=== PATIENT | male | born 1980 | race Caucasian/White ===

== ENCOUNTER 2024-03-17 19:56 | Inpatient (IN) | payer BC, SELFPAY ==
[2024-03-17] VITALS (7 sets, daily range): BP systolic 117–152; BP diastolic 68–100; BMI 33.1
[2024-03-17 15:00] LABS: % Basophils 0.3 % (0-2); % Eosinophils 1.9 % (0-6); % Immature Granulocytes 0.5 % (0-0.5); % Lymphocytes 12.2 % (20.5-51.1); % Monocytes 9.4 % (1.7-9.3); % Neutrophils 75.7 % (42.2-75.2); Absolute Basophils 0.1 10^3/uL (0-0.2); Absolute Eosinophils 0.3 10^3/uL (0-0.7); Absolute Immature Granulocytes 0.1 10^3/uL (0-0.05); Absolute Lymphocytes 1.9 10^3/uL (1.2-3.4); Absolute Monocytes 1.5 10^3/uL (0.1-0.6); Absolute Neutrophils 11.7 10^3/uL (1.4-6.5); Hemoglobin 15.9 g/dL (13.0-18.0); Mean Corp Hgb Conc. 34.6 g/dL (33.0-37.0); Mean Corpuscular Hgb 30.5 pg (27.0-31.0); Mean Corpuscular Volume 88.1 fL (80.0-94.0); Mean Platelet Volume 8.6 fL (7.4-10.4); Nucleated Red Blood Cells % 0 % (-); Platelet Count 325 10^3/uL (130-400); Red Blood Cell Count 5.22 10^6/uL (4.70-6.10); Red Cell Dist. Width 11.9 % (11.5-14.5); White Blood Cell Count 15.5 10^3/uL (4.8-10.8)
--- NOTE | 2024-03-17 15:18 | ED.GENMED ---
History of Present Illness
General
Chief Complaint: Abdominal Pain
Source: patient
Time Seen by Provider: 03/17/24 15:09
History of Present Illness
History of Present Illness:
43yoM with no significant past medical history presenting for evaluation of abdominal pain. He was at the pool yesterday when he had an abrupt onset of nausea and abdominal pain that felt like a 'poop pain.' He started to have diarrhea after this.
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 He woke up this afternoon around noon due to pain. His pain is much worse today and is coming in waves. He has never had a pain like this previously. He continues to have diarrhea
today but denies any vomiting. He reports chills throughout the day as well. He denies any dysuria, testicular pain, chest pain, shortness of breath. Only previous abdominal surgery was a hernia repair as an infant.
Phy Exam
Physical Exam
Physical Exam:
Appears uncomfortable due to pain, non-toxic
General Physical Exam
General Presentation: well appearing and moderate distress
General age: appears stated age
General Skin: warm and dry
Cardiovascular Exam
Cardiovascular Exam: regular rate/rhythm, no edema and no murmur
Pulmonary Exam
Pulmonary Exam: lungs clear, no respiratory distress, no crackles and no wheezing
Gastrointestinal Exam
Gastrointestinal Exam: soft, non distended and tender (+Tenderness to LLQ and RLQ. +Voluntary guarding with rebound tenderness. )
Palpation: left lower quadrant: Severe tenderness and right lower quadrant: Severe tenderness
Skin Exam
Skin Exam: normal color and warm/dry
Course
Orders/Labs/Results
Orders:
Orders
03/17/24 14:45
Complete Blood Count/With Diff Urgent
Comprehensive Metabolic Panel Urgent
Lipase Urgent
03/17/24 15:18
CT Abd/pelvis W Iv Cont Urgent
Comment:
Reason For Exam: Periumbilical pain, diarrhea
Stool Culture Urgent
RADHA Source: Feces/Stool
Specimen Description:
0.9% Sodium Chloride 1000 ml [Nss] 1,000 ml IV BOLUS
Ketorolac [Toradol] 15 mg IV NOW STA
Ondansetron Injectable [Zofran] 4 mg IV NOW STA
03/17/24 17:24
Piperacillin/Tazo 4.5 Gram [Zosyn] 4.5 gram in 100 ml IV NOW
03/17/24 17:34
HYDROmorphone [Dilaudid] 0.5 mg IV NOW STA
Abnormal Lab Results
03/17/24
14:45
WBC 15.5 H 10^3/uL
(4.8-10.8)
Abs Immat Gran (auto) 0.1 H 10^3/uL
(0-0.05)
Absolute Neuts (auto) 11.7 H 10^3/uL
(1.4-6.5)
Absolute Monos (auto) 1.5 H 10^3/uL
(0.1-0.6)
Neutrophils % 75.7 H %
(42.2-75.2)
Lymphocytes % 12.2 L %
(20.5-51.1)
Monocytes % 9.4 H %
(1.7-9.3)
Glucose 115 H mg/dl
(70-99)
03/17/24 14:45
03/17/24 14:45
Vital Signs
Initial and Last Documented VS:
Initial Vital Signs
Temp Pulse Resp BP Pulse Ox
99.6 F 110 16 149/100 98
03/17/24 14:36 03/17/24 14:36 03/17/24 14:36 03/17/24 14:36 03/17/24 14:36
Last Documented Vital Signs
Temp Pulse Resp BP Pulse Ox
99.6 F 99 16 142/81 98
03/17/24 14:36 03/17/24 16:56 03/17/24 16:56 03/17/24 16:56 03/17/24 16:56
MDM/Problems Addressed
Differential Diagnosis Includes:
43yoM here with abdominal pain and diarrhea x 1 day. Pain is worse in periumbilical region. +Chills. No urinary symptoms or testicular pain. He is afebrile and hemodynamically stable. He appears uncomfortable during exam. There is voluntary guarding
and rebound tenderness on exam. Differential diagnosis includes but is not limited to: diverticulitis, appendicitis, colitis, kidney stone, perforated viscous, gastroenteritis
Initial ED plan: Check abdominal labs, stool culture, and CT abdomen. IV Zofran, Toradol, and fluid bolus for symptoms.
*Critical Care Note
Total Time (30-74mins, 75-104mins- exclusive of procedures): Not Applicable
Update Note
Update Note:
Labs reveal a leukocytosis with a WBC of 15.5. CT shows acute diverticulitis with microperforation. IV Zosyn ordered and he was admitted for further management.
ED Attending Note
-
Portions of this chart may have been created with voice recognition software.� Occasional wrong word or��sound alike� substitutions may have occurred due to the inherent limitations of voice recognition software.
Discharge Plan
Departure
Patient Disposition: Admit
Date of Disposition: 03/17/24
Time of Disposition: 17:37
Presentation/result/management discussed w/ accepting MD/DO: Hospitalist
Discharge Problem:
Acute diverticulitis
Prescriptions:
No Action
No Current Medications
0
Referrals:
NONE,* [Family Provider] -
Interventions
Interventions:
*Risk Screen - Suicide Last Done: 03/17/24 14:36
*General Assessment Last Done: 03/17/24 14:36
*Neglect/Abuse Screening Last Done: 03/17/24 14:36
ED- Fall Risk Assessment Last Done: 03/17/24 15:09
*ED COVID-19 Vaccine History Last Done: 03/17/24 15:09
UZ-Vlcica-Dbxxdqhrbc Assessment Last Done: 03/17/24 15:09
Discharge Date and Time
Print Language: TAMAZIGHT
[2024-03-17 15:19] LABS: ALT (SGPT) 34 U/L (0-50); AST (SGOT) 26 U/L (17-59); Albumin 4.8 g/dl (3.5-5.0); Alkaline Phosphatase 68 U/L (38-126); Blood Urea Nitrogen 20 mg/dl (9-20); Calcium 10.2 mg/dl (8.4-10.2); Carbon Dioxide 28 mmol/L (22-30); Chloride 103 mmol/L (98-107); Glucose 115 mg/dl (70-99); Lipase 59 U/L (23-300); Potassium 4.4 mmol/L (3.5-5.1); Sodium 139 mmol/L (135-145); Total Bilirubin 0.8 mg/dl (0.2-1.3); Total Protein 7.5 g/dl (6.3-8.2); eGFR > 60.00
[2024-03-17] MEDS: ZOFRAN 4 MG IV (15:23)
[2024-03-17] MEDS: TORADOL 15 MG IV (15:23)
[2024-03-17] MEDS: NSS 1000 IV ×2 (15:23→21:30)
[2024-03-17] MEDS: ZOSYN 100 IV (17:30)
[2024-03-17] MEDS: DILAUDID 0.5 MG IV ×2 (17:49→22:33)
--- NOTE | 2024-03-17 18:11 | HPS.HSE ---
Addendum entered and electronically signed by SUNDAY Da Silva 03/17/24 18:53:
will place on tele given sepsis
Original Note:
Family Physician
-
Family Physician: * NONE
Chief Complaint
-
Abdominal pain, nausea, diarrhea
History of Present Illness
43-year-old male complaining of abdominal pain with nausea to the right of his umbilicus associated with watery black/green diarrhea. 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
black-green in color no mucus or blood. He is estranged from his family but has not heard of any history of diverticulitis diverticulosis or colitis. He has never had a colonoscopy himself. He denies eating any recent lunch meat that he got from
[employer] as there is a current Listeria outbreak for the [employer] that he purchased. He is tender right sided only. He woke up around noon still with abdominal pain coming in waves like forms. He reports chills throughout the day. He denies any
hematuria, dysuria, testicular pain or swelling, fever, chest pain, shortness of breath, cough, vomiting.
He has past surgical history of hernia repair as , dips nicotine, occasional alcohol.
Medical History
Past Medical History
Past Medical History: Reports None
Additional Past Medical History:
HTN
Dips nicotine daily
Occasional alcohol
Past Surgical History: Reports Other
Additional Past Surgical History:
Inguinal hernia repair as child
Social History
Tobacco: Other (Dips nicotine and pouches daily)
Alcohol: Occasional (2 beers 2-3 times a week when off work)
Drug: None
Personal:
Living: With Family (Twin children)
Employment: Employed (protection officer)
Family History
Family History: Other (Patient is estranged from his family although denies hearing any reports of colon issues)
Allergies / Home Medications
Allergies reflects when Allergies were last updated in [facility].
Home Medications with original date entered in [facility]
Allergy/Medication List:
Allergies
Allergy/AdvReac Type Severity Reaction Status Date / Time
No Known Allergies Allergy Verified 03/17/24 14:36
Home Medications
No Meds [No Current Medications] 03/17/24
Review of Systems
-
History Source: Patient
A 12 point ROS was completed and negative except as noted: Yes
Constitutional: Reports Chills; Denies Fever or Fatigue
EENT: Denies Sore Throat or Runny Nose
Respiratory: Denies Cough or Trouble Breathing
Cardiac: Denies Chest Pain or Diaphoresis
Abdomen/GI: Reports Abdominal Pain (To right of umbilicus), Nausea, Vomiting (X 1 yesterday) and Diarrhea (Watery black to green)
: Denies Dysuria, Frequency, Flank Pain, Incontinence or Difficulty Voiding
Musculoskeletal: Denies Joint Pain or Edema
Skin: Denies Itching or Rash
Neurological: Denies Dizzy, Headache, Weakness or Numbness
Endocrine: Reports No Symptoms and Polyuria
Hematologic/Lymphatic: Reports No Symptoms
Psych: Reports Calm
Physical Exam
Vital Signs
Vital Signs
Temp Pulse Resp BP Pulse Ox
99.6 F 99 16 142/81 98
03/17/24 14:36 03/17/24 16:56 03/17/24 18:10 03/17/24 16:56 03/17/24 16:56
Physical Exam
General: Comfortable, Conversant, Pain and Chills; No Fever
HEENT: NormoCephalic, Anicteric, Moist mucous membranes, PERRLA, [place] Conjunctivae and No Ptosis
Respiratory: Clear; No Wheezes, Rales or Rhonchi
Cardiac: S1/S2 and Regular Rhythm (HR 95); No Murmur, Rub or Gallop
Breast: Deferred by me
GI: Soft, Normal Bowel Sounds, Tender (To right of umbilicus hard with palpation) and Distended
Rectal: Deferred by Provider
Genito-urinary: Deferred by me
Musculoskeletal: No Clubbing, No Cyanosis and No Edema
Skin: Warm and Dry; No Rash
Neuro: AO x 3, No Motor Deficits and Cranial Nerves Intact; No Slurred Speech, Facial Droop, Tremors or Sedated
Laboratory Results
-
03/17/24 14:45
03/17/24 14:45
Laboratory Results
Total Bilirubin 0.8 mg/dl (0.2-1.3) 03/17/24 14:45
AST 26 U/L (17-59) 03/17/24 14:45
ALT 34 U/L (0-50) 03/17/24 14:45
Alkaline Phosphatase 68 U/L (38-126) 03/17/24 14:45
Lipase 59 U/L (23-300) 03/17/24 14:45
Data Reviewed
-
CT Scan: Report Reviewed by me
Lab Data: Labs Reviewed by me
Impression/Plan
-
Impression/plan:
Admit to MedSurg
#Sepsis 2/2 acute sigmoid diverticulitis with microperforation
WBC 15.5 with left shift, 99.6 F, HR 95, 120/84
-Blood culture x 1, check lactic acid
-Consult colorectal surgery
-IV NSS
-N.p.o.
-IV PPI
-IV Zosyn
-Pain control, Zofran as needed nausea
-Follow CBC with CMP
CT with IV contrast: Moderate acute diverticulitis of the mid sigmoid colon with probable focal microperforation. No evidence of abscess formation.
Mild hepatic fatty infiltration
DVT prophylaxis
Subcu Lovenox
Full code
--- NOTE | 2024-03-17 18:44 | W.PN.UPDATE ---
Update Note
Progress Note Update
I saw and examined the patient.
The METALS ANALYST or PA's note was reviewed and I agree with the note.
Comment: This dictation is in addition to METALS ANALYST's H&P
43-year-old male with history of inguinal hernia repair came to the hospital with abdominal pain, nausea and vomiting. CT scan consistent with complicated diverticulitis with microperforation. Check lactic acid. Consult colorectal surgery. NPO.
Continue with antibiotics. IVF. If symptoms get worse lactic elevated then notify colorectal surgery. Pain control. bcx
General: Appears uncomfortable due to pain, non-toxic
HEENT: anicteric,pink conjuctivae
CVS: RRR, normal S1 and s2
Resp: CTA,no wheezing
GI: tender, not distended
: no francois
Ext: no edema
Neuro: AAOX3
Psych: calm
[2024-03-17] MEDS: PROTONIX IV 40 MG IV (19:15)
[2024-03-17 19:51] LABS: Lactic Acid 1.4 mmol/L (0.7-2.0)
[2024-03-17] MEDS: TYLENOL 650 MG PO (21:30)
--- NOTE | 2024-03-17 22:30 | PTCARENOTE ---
A 43-year-old male pt arrived from the ED at 21:15, Pt complaining of abdominal pain with nausea to the right of his umbilicus associated with watery black/green diarrhea. 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
from 12- 30 this morning of watery black-green in color no mucus or blood. He reports chills throughout the day, upon arrival to the unit his initial temp was 101.3, pt given Tylenol an hour later temp 99.8. He has past surgical history of hernia
repair as , dips nicotine, occasional alcohol. Dx Sigmoid Diverticulitis with Mircro Perf, pt NPO. Stool sample pending, hat in bathroom, pt aware to call when he has a BM. Pt AOx3. bed in a low postition, call light in reach.
[2024-03-17] MEDS: ZOSYN 50 IV (23:42)
[2024-03-18 03:31] VITALS: BP 113/68
[2024-03-18] MEDS: ZOSYN 50 IV ×4 (05:22→23:50)
[2024-03-18 07:40] VITALS: BP 122/70
[2024-03-18 07:53] LABS: ALT (SGPT) 22 U/L (0-50); AST (SGOT) 19 U/L (17-59); Albumin 3.6 g/dl (3.5-5.0); Alkaline Phosphatase 60 U/L (38-126); Blood Urea Nitrogen 17 mg/dl (9-20); Calcium 8.9 mg/dl (8.4-10.2); Carbon Dioxide 25 mmol/L (22-30); Chloride 104 mmol/L (98-107); Estimated Creatinine Clearance > 125 ml/min; Glucose 102 mg/dl (70-99); Potassium 3.7 mmol/L (3.5-5.1); Sodium 134 mmol/L (135-145); Total Bilirubin 1.4 mg/dl (0.2-1.3); eGFR > 60.00
[2024-03-18 09:30] LABS: % Basophils 0.3 % (0-2); % Eosinophils 0.6 % (0-6); % Immature Granulocytes 0.3 % (0-0.5); % Lymphocytes 11.4 % (20.5-51.1); % Monocytes 10.2 % (1.7-9.3); % Neutrophils 77.2 % (42.2-75.2); Absolute Eosinophils 0.1 10^3/uL (0-0.7); Absolute Immature Granulocytes 0.1 10^3/uL (0-0.05); Absolute Lymphocytes 1.8 10^3/uL (1.2-3.4); Absolute Monocytes 1.6 10^3/uL (0.1-0.6); Absolute Neutrophils 12.3 10^3/uL (1.4-6.5); Hematocrit 35.7 % (39.0-52.0); Hemoglobin 12.5 g/dL (13.0-18.0); Mean Corpuscular Hgb 30.4 pg (27.0-31.0); Mean Corpuscular Volume 86.9 fL (80.0-94.0); Mean Platelet Volume 8.8 fL (7.4-10.4); Nucleated Red Blood Cells % 0 % (-); Platelet Count 257 10^3/uL (130-400); Red Blood Cell Count 4.11 10^6/uL (4.70-6.10); Red Cell Dist. Width 11.9 % (11.5-14.5); White Blood Cell Count 15.9 10^3/uL (4.8-10.8)
[2024-03-18] MEDS: NSS 1000 IV ×2 (09:30→17:56)
[2024-03-18] MEDS: TYLENOL 650 MG PO (09:39)
[2024-03-18] MEDS: NSS (PRESERVATIVE FREE) 10 ML IV (09:40)
[2024-03-18] MEDS: PROTONIX IV 40 MG IV (09:40)
--- NOTE | 2024-03-18 10:33 | PTOTSP ---
Patient observed ambulating independently in the hallway. Patient agreeable to PT signing off at this time.
--- NOTE | 2024-03-18 10:37 | W.PN.HOSP.TC ---
Today's Communication/Plan
-
monitor vitals
see plan
surgery to see today
NPO
IVF
pain control
follow fever curve
cw abx
Assessment / Plan
Assessment / Plan
General: Appears uncomfortable due to pain, non-toxic
HEENT: anicteric,pink conjuctivae
CVS: RRR, normal S1 and s2
Resp: CTA,no wheezing
GI: tender, not distended
: no francois
Ext: no edema
Neuro: AAOX3
Psych: calm
Sepsis 2/2 acute sigmoid diverticulitis with microperforation
normal lactate
bcx pending
-Consulted colorectal surgery
-IV NSS
-N.p.o.
-IV PPI
-IV Zosyn
-Pain control, Zofran as needed nausea
CT with IV contrast: Moderate acute diverticulitis of the mid sigmoid colon with probable focal microperforation. No evidence of abscess formation.
Mild hepatic fatty infiltration
DVT prophylaxis
Subcu Lovenox
Full code
Anticipated Discharge: Today
Subjective/Interval History
-
Date of Service: March 18, 2024
fever overnight
Objective Data
-
Labs:
Laboratory Results
03/18/24
07:05
WBC 15.9 H
Hgb 12.5 L D
Hct 35.7 L
Plt Count 257 D
Sodium 134 L
Potassium 3.7
Chloride 104
Carbon Dioxide 25
BUN 17
Creatinine 0.9
Glucose 102 H
Calcium 8.9
Total Bilirubin 1.4 H
AST 19
ALT 22
Alkaline Phosphatase 60
Vital Signs:
Vital Signs
Temp Pulse Resp BP Pulse Ox
100.1 F 91 16 122/70 97
03/18/24 07:40 03/18/24 07:40 03/18/24 07:40 03/18/24 07:40 03/18/24 09:50
I&O
03/17/24 03/18/24 03/19/24
06:59 06:59 06:59
Intake Total 1050 / 1050
Balance 1050 / 1050
[2024-03-18 11:10] VITALS: BP 129/76
--- NOTE | 2024-03-18 11:26 | CON.GS ---
Addendum entered and electronically signed by Kalyan Hair MD 03/18/24 14:47:
Patient seen and examined in consultation with surgical nurse practitioner this a.m. Agree with documented consultation note. This is a delayed consult entry/update.
HPI: 43-year-old male with no significant past abdominal surgical history or prior GI history who presented with the acute onset of abdominal pain noted to when swimming in the pool with his children on . Then developed diarrhea and episode
of vomiting. He went to work overnight into Wednesday with worsening abdominal pain yesterday after returning home prompting emergency department evaluation. Pain worse with movement. Predominantly located in the lower central abdomen. Now
alleviated a bit after treatment overnight. No further nausea or vomiting. No flatus and no bowel movement after diarrhea ceased the other day.
No family history of colon cancers or GI conditions. He has never had a colonoscopy.
Tmax 101.3 afebrile vital signs stable
NAD AAOx3 appears comfortable
Abdomen: Softly distended, tenderness palpation suprapubic with voluntary guarding on deep palpation and rebound localized to this area. Rest of abdominal examination with some tenderness in the bilateral lower quadrants but no rebound or guarding
in these regions. No percussion tenderness.
CT imaging consistent with probable sigmoid diverticulitis and contained mesenteric perforation without abscess or fluid collection.
Assessment/plan: 43-year-old male with sigmoid diverticulitis complicated by probable contained mesenteric perforation without abscess or fluid collection. Without peritonitis.
Reviewed with patient pathophysiology of diverticular disease.
We discussed medical management given clinical stability and improvement with initial bowel rest, IV fluid hydration and antibiotics.
Continue close monitoring
Discussed risks of potential development of abscess
Follow-up CBC tomorrow
Continue Zosyn
Continue n.p.o. except ice chips/sips for comfort
IV fluids
Analgesics/antiemetics as needed
Original Note:
Consultation
-
Date/Time Consultation Requested: 03/17/24 2357
Requesting Provider: Miguel
Reason for Consultation: Sigmoid diverticulitis with perf
Medical History
-
Chief Complaint: abdominal pain
History of Present Illness:
Mr. Duncan is a 43 yo male with h/o inguinal hernia repair as a child who presents with abdominal day which began about 2 days ago while he was in the pool with his children. He notes that he had a wave of nausea and went into the house and vomited.
He then developed watery diarrhea and felt a little better after passing some stools. He works third shift and completed his shift as usual but did have multiple episodes of diarrhea during his shift. He went home and went to bed but was awakened
from sleep around noon with increasing abdominal pain and chills. He presented through the ED for evaluation given the severity of his pain. He denies active nausea and notes the pain is a little better. He is markedly tender to the suprapubically
to the left side of the abdomen with radiating tenderness to the lower abdomen. He was febrile overnight to 101.3 but currently afebrile. He denies family history of colon problems and has not yet had a colonoscopy.
Past Medical History
Past Medical History: HTN
Past Surgical History: Hernia Repair (inguinal as a child)
Social History
Tobacco: Other (dip)
Alcohol: Occasional
Personal:
Living: With Family
Employment: Employed (admitting officer)
Family History
Family History: Reviewed & Not Pertinent
Allergies / Home Medications
Allergy/AdvReac Type Severity Reaction Status Date / Time
No Known Allergies Allergy Verified 03/17/24 14:36
�Medication �Instructions �Recorded �Confirmed �Type
No Meds [No Current Medications] 03/17/24 03/17/24 History
Review of Systems
-
History Source: Patient
All other systems: Negative unless noted
A 10 point review of systems was completed, and was negative except as per HPI.
Physical Exam
Vital Signs
Temp Pulse Resp BP Pulse Ox
99.0 F 84 16 129/76 96
03/18/24 11:10 03/18/24 11:10 03/18/24 11:10 03/18/24 11:10 03/18/24 11:10
03/17/24 03/18/24 03/19/24
06:59 06:59 06:59
Actual Weight 113.942 kg
Body Mass Index (BMI) 33.1
Lab Results
03/18/24 07:05
03/18/24 07:05
WBC 15.9 10^3/uL (4.8-10.8) H 03/18/24 07:05
Hgb 12.5 g/dL (13.0-18.0) L D 03/18/24 07:05
Hct 35.7 % (39.0-52.0) L 03/18/24 07:05
Plt Count 257 10^3/uL (130-400) D 03/18/24 07:05
Abs Immat Gran (auto) 0.1 10^3/uL (0-0.05) H 03/18/24 07:05
Neutrophils % 77.2 % (42.2-75.2) H 03/18/24 07:05
Physical Exam
General: Well Developed and Well Nourished
HEENT: Moist Mucous Membranes
Respiratory: Non Labored Respirations
GI: Soft, Tender (severe to left side of suprapubic area, BLLQ also mildly tender) and Distended (mild)
Skin: Warm and Dry
Neuro: Awake, Alert and AO x 3
Psych: Calm
Data Reviewed
-
CT Scan: Image Personally Visualized and interpreted, Report Reviewed by me, Discussed with Physician, Discussed with Nurse and Discussed with Patient
Labs: Labs Reviewed by me, Discussed with Physician and Discussed with Patient
Old Records: Reviewed
Assessment / Plan
-
43 yo male with around 48 hours of lower abdominal pain with n/v/d at home. CT imaging reviewed with findings consistent with sigmoid diverticulitis with small contained perforation without abscess. This is his first episode of diverticulitis.
Febrile overnight to 101.7. Initially with tachycardia which has resolved. Leukocytosis present, not yet trending down.
No plans for emergent surgery at this time. Will follow with bowel rest on antibiotics with supportive measures for improvement.
--NPO with sips of clears
--IVF while NPO
--Analgesics/antiemetics as needed
--Medical management as per primary team
--- NOTE | 2024-03-18 11:30 | CM ---
Reviewed the chart notes and spoke with the patient at the bedside. The patient resides with his spouse in a two story home with one step to enter. The patient reports no DME/VN/SNF in the past. The patient confirmed his pharmacy of choice is the
[address] CM continues to be available to patient/family and is monitoring medical plan for needs at discharge.
Plan: Discharge to home when medically stable. No anticipated needs. Patient's spouse will provide transportation home.
[2024-03-18] MEDS: DILAUDID 0.25 MG IV (14:18)
[2024-03-18 15:55] VITALS: BP 128/76
[2024-03-18 19:28] VITALS: BP 125/80
[2024-03-18] MEDS: NICODERM TRANSDERMAL 7 MG TRANSDERM (19:54)
[2024-03-18 23:29] VITALS: BP 143/85
[2024-03-19 03:31] VITALS: BP 143/83
[2024-03-19] MEDS: NSS 1000 IV ×2 (04:35→15:12)
[2024-03-19] MEDS: ZOSYN 50 IV ×4 (06:12→23:53)
[2024-03-19 07:30] VITALS: BP 138/89
--- NOTE | 2024-03-19 08:47 | W.PN.GS2 ---
Addendum entered and electronically signed by Kalyan Burgess MD 03/19/24 09:02:
Seen and examined with REPAIR MANAGER. Agree with documented progress note
Patient sleeping but awoke easily. Patient states that he had difficulty sleeping till about 4 AM
Abdominal pain much improved
No nausea
Passing flatus and loose stools
AFVSS
ABD: Soft, less distended, still with tenderness in the suprapubic region, and a bit to the right and left lower quadrant but no voluntary guarding or rebound
Assessment/plan: 43-year-old male with sigmoid diverticulitis complicated by contained presumed mesenteric perforation without abscess or fluid collection, without generalized peritonitis
Clinically responding well to medical management
Okay to initiate liquid diet today starting with clears and advancing to fulls in the evening
Continue Zosyn
Possible further dietary advancement and discharge tomorrow if continued clinical improvement
Would subsequently need routine outpatient follow-up and colonoscopy in approximately 3 months
Original Note:
Today's Communication / Plan
-
Clear liquids and advance to fulls if tolerating
Assessment / Plan
-
43-year-old male with sigmoid diverticulitis complicated by probable contained mesenteric perforation without abscess or fluid collection. Without peritonitis.
AFVSS
Labs for today pending
Afebrile for past 24h
Plan:
Trend CBCs
Continue IV Zosyn
Trial of clear liquids and advance to FLD later today if no increase in pain
IV fluids
Analgesics/antiemetics as needed
Planning continued medical management given clinical stability and improvement with initial bowel rest, IV fluid hydration and antibiotics. Follow closely for potential development of abscess
Subjective Data
-
Date of Service: March 19, 2024
Patient seen and examined at bedside with Dr. burgess. Denies n/v. Passed some loose stools overnight and flatus. Pain improving. Afebrile. Did not sleep well last night, was unable to fall asleep until around 4am
Objective Data
-
Intake and Output
03/18/24 03/19/24 03/20/24
06:59 06:59 06:59
Intake Total 1050 / 1050 1800 / 1800
Output Total 350 / 350
Balance 1050 / 1050 1450 / 1450
Intake:
IV fluids (Total) 950 / 950 1800 / 1800
IV piggybacks 100 / 100
Output:
Urine, Voided 350 / 350
Other:
Number of approximated MODERATE 1 3
amounts of urine
Number of approximated LARGE 1
amounts of urine
Number of unmeasured liquid
stools
Rectum 1
Vital Signs
Temp Pulse Resp BP Pulse Ox
98.1 F 85 14 138/89 98
03/19/24 07:30 03/19/24 07:30 03/19/24 07:30 03/19/24 07:30 03/19/24 07:30
Calcium 8.9 mg/dl (8.4-10.2) 03/18/24 07:05
Total Bilirubin 1.4 mg/dl (0.2-1.3) H 03/18/24 07:05
AST 19 U/L (17-59) 03/18/24 07:05
ALT 22 U/L (0-50) 03/18/24 07:05
Alkaline Phosphatase 60 U/L (38-126) 03/18/24 07:05
Total Protein 6.0 g/dl (6.3-8.2) L 03/18/24 07:05
Albumin 3.6 g/dl (3.5-5.0) 03/18/24 07:05
Physical Exam
-
NAD
ABD soft, ND, tenderness to left lateral suprapubic area
[2024-03-19] MEDS: NSS (PRESERVATIVE FREE) 10 ML IV (09:17)
[2024-03-19] MEDS: PROTONIX IV 40 MG IV (09:18)
[2024-03-19 09:43] LABS: ALT (SGPT) 21 U/L (0-50); AST (SGOT) 29 U/L (17-59); Albumin 4.1 g/dl (3.5-5.0); Alkaline Phosphatase 73 U/L (38-126); Blood Urea Nitrogen 11 mg/dl (9-20); Carbon Dioxide 19 mmol/L (22-30); Chloride 106 mmol/L (98-107); Estimated Creatinine Clearance > 125 ml/min; Glucose 71 mg/dl (70-99); Potassium 3.8 mmol/L (3.5-5.1); Sodium 137 mmol/L (135-145); Total Bilirubin 1.1 mg/dl (0.2-1.3); Total Protein 6.7 g/dl (6.3-8.2); eGFR > 60.00
[2024-03-19 10:43] LABS: % Basophils 0.5 % (0-2); % Eosinophils 2.4 % (0-6); % Immature Granulocytes 0.4 % (0-0.5); % Lymphocytes 18.7 % (20.5-51.1); Absolute Basophils 0.1 10^3/uL (0-0.2); Absolute Eosinophils 0.3 10^3/uL (0-0.7); Absolute Monocytes 0.9 10^3/uL (0.1-0.6); Absolute Neutrophils 7.5 10^3/uL (1.4-6.5); Hematocrit 38.7 % (39.0-52.0); Mean Corp Hgb Conc. 36.2 g/dL (33.0-37.0); Mean Corpuscular Hgb 30.9 pg (27.0-31.0); Mean Corpuscular Volume 85.4 fL (80.0-94.0); Nucleated Red Blood Cells % 0 % (-); Red Blood Cell Count 4.53 10^6/uL (4.70-6.10); Red Cell Dist. Width 11.4 % (11.5-14.5); White Blood Cell Count 10.7 10^3/uL (4.8-10.8)
--- NOTE | 2024-03-19 10:45 | W.PN.HOSP.TC ---
Today's Communication/Plan
-
monitor vitals
see plan
cw abx
trial of clears
Assessment / Plan
Assessment / Plan
General: Appears uncomfortable due to pain, non-toxic
HEENT: anicteric,pink conjuctivae
CVS: RRR, normal S1 and s2
Resp: CTA,no wheezing
GI: tender, not distended
: no francois
Ext: no edema
Neuro: AAOX3
Psych: calm
Sepsis 2/2 acute sigmoid diverticulitis with microperforation
normal lactate
bcx NGTD
colorectal surgery following
Trial of clears
-IV PPI
-IV Zosyn
-Pain control, Zofran as needed nausea
CT with IV contrast: Moderate acute diverticulitis of the mid sigmoid colon with probable focal microperforation. No evidence of abscess formation.
Mild hepatic fatty infiltration
DVT prophylaxis
Subcu Lovenox
Full code
Anticipated Discharge: Within 24 hours
Subjective/Interval History
-
Date of Service: March 19, 2024
Feeling little better
Objective Data
-
Labs:
Laboratory Results
03/19/24
07:22
WBC 10.7
Hgb 14.0
Hct 38.7 L
Plt Count Pending
Sodium 137
Potassium 3.8
Chloride 106
Carbon Dioxide 19 L
BUN 11
Creatinine 0.7
Glucose 71
Calcium 9.0
Total Bilirubin 1.1
AST 29
ALT 21
Alkaline Phosphatase 73
Vital Signs:
Vital Signs
Temp Pulse Resp BP Pulse Ox
98.1 F 85 14 138/89 98
03/19/24 07:30 03/19/24 07:30 03/19/24 07:30 03/19/24 07:30 03/19/24 07:30
I&O
03/18/24 03/19/24 03/20/24
06:59 06:59 06:59
Intake Total 1050 / 1050 1800 / 1800
Output Total 350 / 350
Balance 1050 / 1050 1450 / 1450
[2024-03-19 11:54] LABS: Platelet Count 270 10^3/uL (130-400)
[2024-03-19 11:55] LABS: Mean Platelet Volume 9.3 fL (7.4-10.4)
[2024-03-19 15:00] VITALS: BP 134/91
[2024-03-19 23:00] VITALS: BP 151/100
[2024-03-20] MEDS: NSS 1000 IV (02:55)
[2024-03-20] MEDS: ZOSYN 50 IV (05:08)
[2024-03-20 07:14] LABS: % Basophils 0.4 % (0-2); % Eosinophils 4.9 % (0-6); % Immature Granulocytes 0.5 % (0-0.5); % Lymphocytes 19.2 % (20.5-51.1); % Monocytes 9.6 % (1.7-9.3); % Neutrophils 65.4 % (42.2-75.2); Absolute Eosinophils 0.5 10^3/uL (0-0.7); Absolute Immature Granulocytes 0.1 10^3/uL (0-0.05); Absolute Lymphocytes 1.8 10^3/uL (1.2-3.4); Absolute Monocytes 0.9 10^3/uL (0.1-0.6); Absolute Neutrophils 6.1 10^3/uL (1.4-6.5); Hematocrit 36.8 % (39.0-52.0); Hemoglobin 13.1 g/dL (13.0-18.0); Mean Corp Hgb Conc. 35.6 g/dL (33.0-37.0); Mean Corpuscular Hgb 30.8 pg (27.0-31.0); Mean Corpuscular Volume 86.6 fL (80.0-94.0); Mean Platelet Volume 9.1 fL (7.4-10.4); Nucleated Red Blood Cells % 0 % (-); Platelet Count 279 10^3/uL (130-400); Red Blood Cell Count 4.25 10^6/uL (4.70-6.10); Red Cell Dist. Width 11.4 % (11.5-14.5); White Blood Cell Count 9.3 10^3/uL (4.8-10.8)
[2024-03-20 07:33] LABS: ALT (SGPT) 18 U/L (0-50); AST (SGOT) 21 U/L (17-59); Albumin 3.6 g/dl (3.5-5.0); Alkaline Phosphatase 55 U/L (38-126); Blood Urea Nitrogen 10 mg/dl (9-20); Carbon Dioxide 25 mmol/L (22-30); Chloride 106 mmol/L (98-107); Estimated Creatinine Clearance > 125 ml/min; Glucose 88 mg/dl (70-99); Potassium 4.2 mmol/L (3.5-5.1); Sodium 138 mmol/L (135-145); Total Bilirubin 0.6 mg/dl (0.2-1.3); eGFR > 60.00
[2024-03-20 07:50] VITALS: BP 151/87
--- NOTE | 2024-03-20 07:56 | W.PN.HOSP.TC ---
Today's Communication/Plan
-
advance to LRD
Assessment / Plan
Assessment / Plan
General: Appears uncomfortable due to pain, non-toxic
HEENT: anicteric,pink conjuctivae
CVS: RRR, normal S1 and s2
Resp: CTA,no wheezing
GI: tender, not distended
: no francois
Ext: no edema
Neuro: AAOX3
Psych: calm
CT A/P 03/17/24
IMPRESSION: Moderate acute diverticulitis of the mid sigmoid colon with probable focal microperforation. No evidence of abscess formation.
Mild hepatic fatty infiltration
Critical value: Perforation
Sepsis 2/2 acute sigmoid diverticulitis with microperforation
-lactate nl
-appreciate CRS
-CLD advanced to fulls on 03/19; will now advanced to LRD this AM and possible DC home later today
-IV PPI
-IV Zosyn
-Pain control, Zofran as needed nausea
-needS routine outpatient follow-up and colonoscopy in approximately 3 months
-will complete 14 day course on DC with Augmentin TID (11 more days on DC)
DVT prophylaxis
Subcu Lovenox
Full code
Anticipated Discharge: Within 24 hours
Subjective/Interval History
-
Date of Service: March 20, 2024
feeling well
no pain
tolerated fulls
wants to eat real food and go home later
no fevers/chills
no vomiting/nausea
Objective Data
-
Labs:
Laboratory Results
03/20/24
06:37
WBC 9.3
Hgb 13.1
Hct 36.8 L
Plt Count 279
Sodium 138
Potassium 4.2
Chloride 106
Carbon Dioxide 25
BUN 10
Creatinine 0.9
Glucose 88
Calcium 9.0
Total Bilirubin 0.6
AST 21
ALT 18
Alkaline Phosphatase 55
Vital Signs:
Vital Signs
Temp Pulse Resp BP Pulse Ox
98.8 F 68 18 151/100 99
03/19/24 23:00 03/19/24 23:00 03/19/24 23:00 03/19/24 23:00 03/19/24 23:00
I&O
03/19/24 03/20/24 03/21/24
06:59 06:59 06:59
Intake Total 1800 / 1800 3320 / 3320
Output Total 350 / 350
Balance 1450 / 1450 3320 / 3320
Review of Systems
-
History Source: Patient
All other systems: Reviewed and negative
Physical Exam
-
General: No Apparent Distress
HEENT: PERRLA
Respiratory: Clear to Auscultation; Negative Wheezes
Cardiac: Regular Rhythm and S1/S2
GI: Soft and Nontender
Musculoskeletal: No Edema
Skin: Warm and Dry; Negative Rash
Neuro: AO x 3
Psych: Calm
Data Reviewed
-
Diagnostic Radiology: Report Reviewed by me
Labs: Labs Reviewed by me
[2024-03-20] MEDS: PROTONIX IV 40 MG IV (08:11)
[2024-03-20] MEDS: NSS (PRESERVATIVE FREE) 10 ML IV (08:11)
--- NOTE | 2024-03-20 08:31 | W.PN.GS2 ---
Addendum entered and electronically signed by Khanh Rosario MD 03/20/24 10:42:
I saw and examined the patient independently.
The Biometrics Instructor's note was reviewed and I agree with the note, assessment and plan except where noted below.
Comment: This is a 43-year-old male who presents with his first episode of sigmoid diverticulitis with a contained mesenteric perforation without abscess or peritonitis. Leukocytosis resolved. Clinically improved.
Advance to low residue diet
10 more days of antibiotics, okay to transition to p.o. Augmentin.
Dispo planning, patient to follow-up with Dr. Hair in 2 to 3 weeks, he will need an outpatient colonoscopy in the next 2 to 3 months.
All questions answered, patient agreeable to plan of care above.
Original Note:
Today's Communication / Plan
-
Advance diet
Dispo planning
Assessment / Plan
-
43-year-old male with sigmoid diverticulitis complicated by probable contained mesenteric perforation without abscess or fluid collection. Without peritonitis.
AFVSS
Leukocytosis resolved
Plan:
Trend CBCs
Continue IV Zosyn, ok to transition to PO Augmentin upon discharge. Would recommend a total of 14 day course
Advance to LRD
D/C IVF
Analgesics/antiemetics as needed
Clear for D/C later today from surgical standpoint if tolerating diet
Subjective Data
-
Date of Service: March 20, 2024
Patient seen and examined at bedside with Dr. Rosario. Pain is nearly resolved and he feels overall much improved. Denies n/v. Tolerating dietary advancements without worsening pain. Passing flatus and some loose stools.
Objective Data
-
Intake and Output
03/19/24 03/20/24 03/21/24
06:59 06:59 06:59
Intake Total 1800 / 1800 3320 / 3320
Output Total 350 / 350
Balance 1450 / 1450 3320 / 3320
Intake:
Oral fluids 960 / 960
IV fluids (Total) 1800 / 1800 2160 / 2160
IV piggybacks 200 / 200
Output:
Urine, Voided 350 / 350
Other:
Number of approximated MODERATE 3 3
amounts of urine
Number of approximated LARGE 2
amounts of urine
Number of unmeasured liquid
stools
Rectum 1
Vital Signs
Temp Pulse Resp BP Pulse Ox
97.7 F 68 16 151/87 98
03/20/24 07:50 03/20/24 07:50 03/20/24 07:50 03/20/24 07:50 03/20/24 07:50
Lab Results
03/20/24 06:37
03/20/24 06:37
Calcium 9.0 mg/dl (8.4-10.2) 03/20/24 06:37
Total Bilirubin 0.6 mg/dl (0.2-1.3) 03/20/24 06:37
AST 21 U/L (17-59) 03/20/24 06:37
ALT 18 U/L (0-50) 03/20/24 06:37
Alkaline Phosphatase 55 U/L (38-126) 03/20/24 06:37
Total Protein 6.0 g/dl (6.3-8.2) L 03/20/24 06:37
Albumin 3.6 g/dl (3.5-5.0) 03/20/24 06:37
Physical Exam
-
NAD
ABD soft, ND, mild tenderness to left abd
--- NOTE | 2024-03-20 11:14 | W.DS.TRANS ---
DC Summary - Rn Field Case Manager
-
Discharge Instructions:
Discharge Diagnosis/Procedures acute diverticulitis with microperforation
Diet Low Fiber
Activity As tolerated
Driving Restrictions As prior to admission
Bathing Restrictions None
Instructions: Low Fiber Diet
Stand-Alone Forms:
Changes to Home Medications: Yes
Discharge Medications:
DC Medications w/original date entered in [facility]
amoxicillin 875 mg-potassium clavulanate 125 mg tablet 1 tab PO TID #30 tabs 03/20/24
Home Medication Changes
addition of Augmentin
Pending Results: No
--- NOTE | 2024-03-20 12:19 | CM ---
CM reviewed chart, patient for discharge, home no needs.
Plan; home no needs.
--- NOTE | 2024-03-20 13:28 | W.DCSUMMARY ---
Discharge Summary
Discharge Data
Date of Admission: 03/17/24
Date of Discharge: 03/20/24
-
Pending Results: No
Hospital Course
Discharging Physician : Dr. Rosemarie Anton
Disposition : Home
Principal Discharge diagnosis : Acute Diverticulitis with focal microperforation
Hospital Course :
Mr. Zach Duncan is a 43 yo man without significant history who presents to the ER with acute abdominal pain followed by diarrhea and vomiting. Triage vitals 99.6, P 110, BP 140/100. Labs with WBC 15.5. CT A/P with finding of acute
diverticulitis with probably focal microperforation. Patient was admitted to medicine with surgery consulting. He was treated with IV Zosyn, bowel rest, IVF, pain control. Symptoms improved and diet advanced. He tolerated a LRD prior to
discharge. He is discharged on 10 days Augmentin TID. He will have follow up with [facility] and is told to schedule screening colonoscopy within the next 2-3 months.
Time spent on discharge was 31 mintues.
Important imaging findings :
CT A/P 03/17/24
IMPRESSION: Moderate acute diverticulitis of the mid sigmoid colon with probable focal microperforation. No evidence of abscess formation.
Procedure findings :
Discharge Plan
-
Patient Disposition: Home (Routine Discharge)
Discharge Diagnosis/Procedures: acute diverticulitis with microperforation
Diet: Low Fiber
Activity: As tolerated
Driving Restrictions: As prior to admission
Bathing Restrictions: None
Activity Restrictions/Additional Instructions:
Follow up with Gastroenterology to schedule outpatient colonoscopy in the next 2-3 months.
Instructions: Low Fiber Diet
Referrals:
Kalyan Hair MD [Active] - in three to four weeks
Abisai Boyle MD [Active] - in one to two months (Schedule outpatient colonoscopy in the next 2-3 months)
Additional Discharge Medication Instructions: You have 10 more days of Augmentin (3x/day is the dosing for diverticulitis). I recommend taking probiotics while on antibiotics (can be bought over the counter).
Prescriptions:
New
amoxicillin-pot clavulanate 875-125 mg tablet
1 tab PO TID Qty: 30 0RF
Discharge Orders:
Discharge Patient (As Directed); Ordered 03/20/24
Ordered By: Rosemarie Anton
Discharge Date and Time
Discharge Date/Time: 03/20/24 11:30
Print Language: UKRAINIAN
== END 2024-03-20 11:30 | disposition home or self-care (01) | DRG 872 ==
LOC: 2 SOUTH 19:56
PROVIDERS: Clinical Nurse Specialist Family Health; Emergency Medicine; ADMITTING PHYSICIAN Internal Medicine; ATTENDING PHYSICIAN Student in an Organized Health Care Education/Training Program; CONSULT PHYSICIAN Surgery; EMERGENCY PHYSICIAN Emergency Medicine
DX: A41.9 Sepsis, unspecified organism (principal); K57.20 Diverticulitis of large intestine with perforation and abscess without bleeding
CPT/HCPCS: 74177; 80053; 83605; 83690; 85025; 87040; 87045; 87046; 87427; 96361; 96374; 96375; 99285; Q9967

== ENCOUNTER → 2024-06-07 06:23 | Day surgery (SDC) | payer BC, SELFPAY | LOC: GI 06:23 | PROVIDERS: ATTENDING PHYSICIAN Internal Medicine | DX: Z12.11 Encounter for screening for malignant neoplasm of colon (principal); K64.4 Residual hemorrhoidal skin tags; K57.30 Diverticulosis of large intestine without perforation or abscess without bleeding; K64.8 Other hemorrhoids; K55.20 Angiodysplasia of colon without hemorrhage; K63.89 Other specified diseases of intestine; K63.5 Polyp of colon | CPT/HCPCS: 45380; 88305 ==